=== PATIENT | male | born 1980 | race Hispanic/Latino ===

== ENCOUNTER → 2019-09-09 | Outpatient (CLI) | payer OTHER ==
--- NOTE | 2019-09-09 08:29 | REP ---
CT of the abdomen without IV or bowel contrast for renal calculi: The pelvis is not included. There are no comparisons. There are at least five right nonobstructive renal calculi measuring approximately 3 mm. each. There are at least three left renal calculi, the largest measures 5 mm. The others are approximately 3 mm. There is no hydronephrosis or perinephric stranding. The visualized lung little are unremarkable. The unenhanced hepatic parenchyma, gallbladder, pancreas, spleen, adrenals and abdominal aorta are unremarkable. There is no periaortic adenopathy or mass. The visualized bowel loops and mesentery are unremarkable. Impression: There are multiple bilateral nonobstructive renal calculi as described. There is no hydronephrosis or perinephric stranding. Otherwise, negative CT study of the abdomen without IV or bowel contrast. The pelvis is not included. Electronically Signed by Bruno Hamilton MD 09/09/2019 08:20 A
== END ==
LOC: M RAD 06:48
PROVIDERS: ATTEND Physician Assistant
DX: N20.0 Calculus of kidney (principal)